=== PATIENT | female | born 1965 | race Caucasian/White ===

== ENCOUNTER 2020-08-16 20:23 | Inpatient (IN) | payer BC, SELFPAY ==
[~2020-08-16 20:23] MED LIST: Iopamidol-370 76% 500 ML 1 ML ONE
[2020-08-16] MEDS ORDERED: Pantoprazole 40 MG VIAL ONE (20:32)
[2020-08-16] MEDS ORDERED: Ondansetron PF 4 MG/2 ML Vial ONE (20:37)
--- NOTE | 2020-08-16 20:43 | RAD ---
Portable frontal chest radiograph: 08/16/2020 COMPARISON: None HISTORY: Abdominal pain FINDINGS: Lungs are clear. Heart and mediastinal contours appear within normal limits. IMPRESSION: No acute findings.
[2020-08-16 21:04] LABS: Hemoglobin 10.7 g/dL (12.0-16.0); Mean Corpuscular Hemoglobin 30.3 pg (27.0-31.0); Mean Corpuscular Volume 89.3 fL (78.0-98.0); RBC Distribution Width 13.5 % (11.5-14.5); Red Blood Cell (RBC) Count 3.53 mill/uL (4.20-5.40); White Blood Cell (WBC) Count 2.1 thou/uL (4.8-10.8)
[2020-08-16 21:08] LABS: INR-International Normal Ratio 1.4; Prothrombin Time 17.2 sec (12.0-14.7)
[2020-08-16 21:09] LABS: PTT 28.9 sec (22.9-36.1)
--- NOTE | 2020-08-16 21:12 | CT ---
CT of the chest, abdomen, and pelvis HISTORY: Pain TECHNIQUE: Axial CT imaging at 5 mm intervals from thoracic inlet through pubic symphysis with IV con trast. Coronal and sagittal reformatted imaging obtained FINDINGS: No lymphadenopathy in the chest. No pleural, pericardial, or mediastinal fluid. Areas of lo bulated linear increased density noted throughout the esophagus suggesting severe extensive esophageal varices. No pneumothorax is seen. No endobronchial lesion is evident. No acute pulmonary p arenchymal abnormality. The osseous structures of the chest demonstrate no acute findings. The abdomen/pelvis demonstrates no free intraperitoneal air or fluid. Hyperdensity within the posteri or aspect of the gallbladder noted, evidence of cholelithiasis. The hepatic parenchyma is markedly heterogeneous in demonstrates a irregular peripheral contour, evid ence of cirrhosis area the spleen is enlarged measuring 23 cm in craniocaudal dimension, evidence of portal hypertension. The stomach is filled with large volume debris. Along the inferior lateral as pect of the stomach there is internal hyperdense material which is suspicious for intraluminal hemorrhage. There are prominent varices along the medial aspect of the gastric fundus and proximal ga stric body. Prominent varices are noted in the gastrohepatic ligament and the splenic hilum. There appears to be nonocclusive clot within the splenic vein on axial image 69 measuring 2 cm. There is an exophytic lobulated lesion emanating from the anterior aspect of the mid pole left kidney measuring 3.1 cm with Hounsfield units of 40-45, possibly on the basis of a solid renal mass. An additional nonspecific low-density lesion emanating from the lower pole of the left kidney measuring 3 cm with Hounsfield units of 25-30. Adrenal glands appear unremarkable as does the right kidney. No evidence for bowel obstruction. The pancreas appears grossly unremarkable. There is multifocal atherosclerotic calcification of the infrarenal abdominal aorta and the arterial structures of the pelvis. No retroperitoneal, mesenteric, or pelvic lymphadenopathy. Osseous structures of the abdomen/pelvis demonstrate no acute osseous abnormality. IMPRESSION: Cirrhosis with portal hypertension. Prominent varices including esophageal and gastric va rices. High density material within the stomach suggest blood. Nonspecific left renal lesion for which follow-up CT with and without contrast advised. Cholelithiasis. 2 cm focus of clot within the splenic vein. Results discussed with Dr. Castro at 9:05 PM 08/16/2020
[2020-08-16 21:17] LABS: #Eosinphils 0.1 thou/uL (0.0-0.7); #Lymphocytes 0.4 thou/uL (1.20-3.40); #Monocytes 0.2 thou/uL (0.11-0.59); #Neutrophils 1.4 thou/uL (1.40-6.50); %Eosinophils 3.2 % (0.0-10.0); %Lymphocytes 19.7 % (21.0-51.0); %Neutrophils 67.1 % (42.0-75.0); Mean Platelet Volume 7.8 fL (7.4-10.4); Platelet Count 74 thou/uL (130-400); Platelet Morphology Comment Appears Decreased
[2020-08-16] MEDS ORDERED: Octreotide Acetate 50 MCG/ML AMP ONE (21:22)
[2020-08-16 21:23] LABS: ALT (SGPT) 42 U/L (8-55); AST (SGOT) 36 U/L (5-34); Albumin 3.1 g/dL (3.5-5.0); Alkaline Phosphatase 82 U/L (40-110); Anion Gap 15 mmol/L (10-20); BUN (Urea Nitrogen) 19 mg/dL (9.8-20.1); Bilirubin, Total 0.4 mg/dL (0.2-1.2); Calc. Creatinine Clearance 0 mL/min (70-130); Carbon Dioxide 22 mmol/L (22-29); Chloride 108 mmol/L (98-107); Estimated GFR-MDRD 45; Glucose 212 mg/dL (70-105); Iron 55 ug/dL (50-170); Iron Binding Capacity, Total 276 mcg/dL (265-497); Protein, Total 6.1 g/dL (6.0-8.3); Sodium 142 mmol/L (136-145)
[2020-08-16 21:32] LABS: Potassium 2.9 mmol/L (3.5-5.1)
--- NOTE | 2020-08-16 22:42 | RAD ---
Portable supine frontal chest radiograph: 08/16/2020 HISTORY: Central line placement, blood loss FINDINGS: Supine imaging provided, limiting assessment for pneumothorax and pleural fluid. There is a right-sided vascular catheter with distal tip overlying the cavoatrial junction region. No focal consolidation or alveolar edema. Right costophrenic angle not fully imaged on this exam. IMPRESSION: Right vascular catheter as above.
--- NOTE | 2020-08-16 23:24 | PDOC.HHP ---
Hospitalist HPI - History of Present Illness hematemesis History of Present Illness: Case of an 54y/o female with pmhx of hypothyroidism, DM and htn who comes to hospital due to hematemesis. patient refers she was on her usual state of health until today when she started with some abdominal discomfort, she states went to the bathroom and passed out, family members was with her and refered it lasted abount 30s before resolution and she was able to recognize him w/o any issues. patient then was taken to her bedroom where she started with multiple episodes of hematemesis associated with dizziness and lightheadedness. patient denies use of heavy alcohol consumption, as far as she knows she is up to date on hep b vaccination, denies any use of iv drugs or any family hx of liver disease. patient also denies any fever chills chest pain or diaphoresis Hospitalist ROS - Review of Systems All other systems reviewed; all pertinent +/- noted in HPI/Subj - Exam General Appearance: NAD, awake alert Eye: PERRL, anicteric sclera ENT: normocephalic atraumatic, no oropharyngeal lesions Neck: supple, symmetric, no JVD, no thyromegaly Heart: RRR, no murmur, no gallops, no rubs Respiratory: CTAB, no wheezes, no rales, no ronchi Gastrointestinal: soft, non-tender, non-distended, normal bowel sounds Extremities: no cyanosis, no clubbing, no edema Skin: normal turgor, no lesions, no rashes Neurological: cranial nerve grossly intact, normal sensation to touch, no weakness Musculoskeletal: normal tone, normal strength, no muscle wasting Psychiatric: normal affect, normal behavior, A&O x 3 Hospitalist Results - Labs Result Diagrams: 08/16/20 20:32 08/16/20 20:32 Lab results: WBC 2.1 thou/uL (4.8-10.8) L 08/16/20 20:32 Hgb 10.7 g/dL (12.0-16.0) L 08/16/20 20:32 Hct 31.5 % (36.0-47.0) L 08/16/20 20:32 MCV 89.3 fL (78.0-98.0) 08/16/20 20:32 Plt Count 74 thou/uL (130-400) L 08/16/20 20:32 Neutrophils % 67.1 % (42.0-75.0) 08/16/20 20:32 Sodium 142 mmol/L (136-145) 08/16/20 20:32 Potassium 2.9 mmol/L (3.5-5.1) L* 08/16/20 20:32 Chloride 108 mmol/L (98-107) H 08/16/20 20:32 Carbon Dioxide 22 mmol/L (22-29) 08/16/20 20:32 BUN 19 mg/dL (9.8-20.1) 08/16/20 20:32 Creatinine 1.24 mg/dL (0.6-1.1) H 08/16/20 20:32 Glucose 212 mg/dL (70-105) H 08/16/20 20:32 Calcium 8.0 mg/dL (7.8-10.44) 08/16/20 20:32 Total Bilirubin 0.4 mg/dL (0.2-1.2) 08/16/20 20:32 AST 36 U/L (5-34) H 08/16/20 20:32 ALT 42 U/L (8-55) 08/16/20 20:32 Alkaline Phosphatase 82 U/L (40-110) 08/16/20 20:32 Serum Total Protein 6.1 g/dL (6.0-8.3) 08/16/20 20:32 Albumin 3.1 g/dL (3.5-5.0) L 08/16/20 20:32 Hospitalist H&P A/P - Problem (1) Upper GI bleeding Code(s): K92.2 - GASTROINTESTINAL HEMORRHAGE, UNSPECIFIED Status: Acute (2) Diabetes Code(s): E11.9 - TYPE 2 DIABETES MELLITUS WITHOUT COMPLICATIONS Status: Acute (3) HTN (hypertension) Code(s): I10 - ESSENTIAL (PRIMARY) HYPERTENSION Status: Acute (4) Hypothyroidism Code(s): E03.9 - HYPOTHYROIDISM, UNSPECIFIED Status: Acute (5) Cirrhosis of liver Code(s): K74.60 - UNSPECIFIED CIRRHOSIS OF LIVER Status: Acute - Plan Plan: 54y/o female with the stated pmhx who present to hospital with hematemesis upper gi bleeding - abd ct consistent with cirrhosis and esophageal and gastric varices. also showed splenic vein clot and L renal mass like lesion - transfused 2 prbcs at ed - GI consulted evaluated patient at ED will do EGD in am - octeotride drip - protonix iv q 12 - npo - check hg q 8hr - prophylactic covered with rocephin - start beta javier for prohylaxis when able to tolerate po dm - ss+ acc htn - holding medication in setting of acute blood loss cirrhosis - new dx for patient - unclear etiology - iron levels normal - will send hepatitis panel - no hx of autoimmune disease, no hx of alcohol abuse - fatty liver? thrombocytopenia - consistent with cirrhosis hypokalemia - replace electrolytes - check mg
[2020-08-17] MEDS: cefTRIAXone\\ROCEPHIN 1 GM in Sodium Chloride 0.9% 100 ML IVPB SCH ×2 (00:25→23:19)
[2020-08-17 00:36] VITALS: BMI 34.8
[2020-08-17] MEDS: Potassium Chloride 40 MEQ in Sodium Chloride 0.9% 250 ML 250 ML IVPB SCH ×2 (00:40→04:57)
[2020-08-17 07:08] LABS: SARS-CoV-2 MS2 Positive; SARS-CoV-2 N Gene Negative; SARS-CoV-2 S Gene Negative; SARS-CoV-2 by NAA Not Detected (NotDetected); SARS-CoV-2 orf1ab Negative
[2020-08-17 07:27] LABS: Hemoglobin 10.7 g/dL (12.0-16.0)
[2020-08-17 07:54] LABS: #Lymphocytes 0.1 thou/uL (1.20-3.40); #Monocytes 0.1 thou/uL (0.11-0.59); #Neutrophils 1.6 thou/uL (1.40-6.50); %Basophils 1.2 % (0.0-1.0); %Eosinophils 0.4 % (0.0-10.0); %Monocytes 5.2 % (0.0-10.0); %Neutrophils 87.2 % (42.0-75.0); Hemoglobin 10.7 g/dL (12.0-16.0); Mean Corpuscular HGB CONC 33.8 g/dL (32.0-36.0); Mean Corpuscular Hemoglobin 30.2 pg (27.0-31.0); Mean Corpuscular Volume 89.4 fL (78.0-98.0); Mean Platelet Volume 7.7 fL (7.4-10.4); Platelet Count 51 thou/uL (130-400); RBC Distribution Width 13.6 % (11.5-14.5); Red Blood Cell (RBC) Count 3.54 mill/uL (4.20-5.40); White Blood Cell (WBC) Count 1.9 thou/uL (4.8-10.8)
[2020-08-17 08:57] LABS: ALT (SGPT) 49 U/L (8-55); AST (SGOT) 38 U/L (5-34); Albumin 3.1 g/dL (3.5-5.0); Alkaline Phosphatase 54 U/L (40-110); Anion Gap 18 mmol/L (10-20); BUN (Urea Nitrogen) 33 mg/dL (9.8-20.1); Bilirubin, Direct 0.2 mg/dL (0.1-0.3); Bilirubin, Total 0.5 mg/dL (0.2-1.2); Calc. Creatinine Clearance 93 mL/min (70-130); Calcium 7.9 mg/dL (7.8-10.44); Carbon Dioxide 18 mmol/L (22-29); Chloride 111 mmol/L (98-107); Estimated GFR-MDRD 51; Globulin 3.1 g/dL (2.4-3.5); Glucose 178 mg/dL (70-105); Magnesium 1.6 mg/dL (1.6-2.6); Potassium 4.7 mmol/L (3.5-5.1); Protein, Total 6.2 g/dL (6.0-8.3); Sodium 142 mmol/L (136-145)
[2020-08-17] MEDS: Pantoprazole 40 MG VIAL IVP SCH ×2 (09:28→20:48)
--- NOTE | 2020-08-17 09:28 | PDOC.HOSPP ---
- Subjective Encounter Date: 08/17/20 Encounter Time: 09:25 Subjective: Mr. Pérez was seen today in follow-up of GI Bleed. She says she feels fine. She denies abdominal pain She denies feeling weak or dizzy. - Objective Vital Signs & Weight: Vital Signs (12 hours) Temp Resp Pulse Ox 08/17/20 08:13 97.4 F L 08/17/20 03:51 97.3 F L 08/17/20 02:00 98.6 F 18 08/17/20 00:18 98.3 F 08/17/20 00:00 98.5 F 95 Weight Weight 229 lb Most Recent Monitor Data Heart Rate from ECG 83 NIBP 111/40 NIBP BP-Mean 63 Respiration from ECG 18 SpO2 95 I&O: 08/16/20 08/17/20 08/18/20 06:59 06:59 06:59 Intake Total 1090 Output Total 700 Balance 390 Result Diagrams: 08/17/20 07:10 08/17/20 07:10 Hospitalist ROS - Medication Medications: Active Medications Generic Name Dose Route Start Last Admin Trade Name Freq PRN Reason Stop Dose Admin Ceftriaxone Sodium 1 gm/ 100 mls @ 200 mls/hr 08/16/20 23:59 08/17/20 00:25 Sodium Chloride IVPB Not Given Q24HR SALEEM - Exam Eye: PERRL, anicteric sclera Heart: RRR, no murmur, no gallops, no rubs, normal peripheral pulses Respiratory: CTAB, no wheezes, no rales, no ronchi, normal chest expansion Gastrointestinal: soft, non-tender, non-distended, distended Extremities: no cyanosis, 1+ LE edema Hosp A/P (1) Upper GI bleeding Code(s): K92.2 - GASTROINTESTINAL HEMORRHAGE, UNSPECIFIED Status: Acute (2) Cirrhosis of liver Code(s): K74.60 - UNSPECIFIED CIRRHOSIS OF LIVER Status: Acute (3) Diabetes Code(s): E11.9 - TYPE 2 DIABETES MELLITUS WITHOUT COMPLICATIONS Status: Chronic (4) HTN (hypertension) Code(s): I10 - ESSENTIAL (PRIMARY) HYPERTENSION Status: Chronic (5) Hypothyroidism Code(s): E03.9 - HYPOTHYROIDISM, UNSPECIFIED Status: Chronic - Plan * Upper GI Bleed- CT scan of the abdomen reviewed. This could be due to esophageal varices. * Continue Octreotide drip, and IV Protonix * Will continue to monitor the H&H * Await GI evaluation * Cirrhosis- agree with prophylatic antibiotics with Rocephin * Will check Hepatitis panel * HTN- blood pressure is stable- will continue to hold hoe medications for now * DM- Hold Metformin adn insulin, and place on SSI
[2020-08-17] MEDS ORDERED: Dextrose 5% in Water 1,000 ML IV PRN (09:32)
[2020-08-17] MEDS ORDERED: Dextrose 50% Abboject 50 ML SYRINGE SLOW IVP PRN (09:32)
[2020-08-17] MEDS ORDERED: HumaLOG 300 UNITS/3 ML VIAL SC PRN ×2 (09:32)
[2020-08-17] MEDS: Propranolol HCl 20 MG TAB PO SCH ×2 (11:26→20:49)
[2020-08-17] MEDS ORDERED: Ondansetron PF 4 MG/2 ML Vial ONE (11:39)
[2020-08-17] MEDS ORDERED: Dexamethasone 20 MG/5 ML VIAL ONE (11:39)
[2020-08-17] MEDS ORDERED: PROPOFOL 200 MG/20 ML VIAL ONE (11:39)
[2020-08-17] MEDS ORDERED: Lidocaine 1% PF 5 ML VIAL ONE (11:39)
[2020-08-17] MEDS ORDERED: Succinylcholine 200 MG/10 ml SYRINGE FS ONE (11:39)
--- NOTE | 2020-08-17 12:42 | CON ---
DATE OF CONSULTATION: 08/16/2020 REASON FOR CONSULTATION: Acute GI bleeding. HISTORY OF PRESENT ILLNESS: Karissa Pérez is a 54-year-old obese female, lives in [place]. She does see Dr. Mcgowan , who is her primary care doctor. The patient had no prior history of liver disease or any ulcer disease. Apparently, she was feeling sick to her stomach with mild discomfort and started vomiting blood. So today was tranfered from [place] to [facility] in [place]. In the ER, she had two episodes of hematemesis and as per ER physician, she vomited almost 2 L of fresh blood. Interestingly, she then became hypotensive and blood pressure was fairly stable. I last saw the patient because of hematemesis. The patient is very stable at the present time. Her pulse is 76, blood pressure 106/70. She is awake, alert, and oriented to time, place, and person. The patient denies history of liver disease from before. Apparently, Dr. Mgcowan told her she has history of abnormal LFTs and plan is being made to refer to a color developer. The patient denies history of liver disease from before. There is no history of any hepatitis in the past. She admits she drinks socially, but insists does not have any alcohol abuse. She usually drinks a couple of beers two or three times a week that is what she states. However, during her college years she did drink for two or three years. No history of drug abuse. There is no prior history of hepatitis B antibodies. The patient had abdominal CAT scan done in the ER and a CAT scan shows findings of liver cirrhosis with splenomegaly and also gastric varices and esophageal varices. The patient has had normal stool today. She had no black tarry stools. Denies any aspirin intake, any NSAID medication intake. She has no relevant history. ALLERGIES: SULFA. SOCIAL HISTORY: The patient denies smoking, but has history of social drinking. MEDICAL ILLNESSES: 1. Obesity. 2. Diabetes mellitus. 3. Hypertension. 4. Hypothyroidism. No history of heart disease. No history of COPD or asthma. No history of migraine. MEDICATION LIST: Reviewed. FAMILY HISTORY: No family history of any cancer, any chronic liver disease. REVIEW OF SYSTEMS: Ten-point system review; CONSTITUTIONAL: No history of any weight loss. No history of any fever or chills. No history of any change in exercise tolerance. HEAD: No chronic headache. No syncope. ENT: No diplopia. No impaired vision. No hearing loss. No nose bleed. No sore throat. BREASTS: No breast lump or masses. CARDIOVASCULAR: No dyspnea, orthopnea, PND. No chest pain. LUNGS: No chronic coughing, hemoptysis, or dyspnea. GI: Nausea, vomiting, hematemesis. : No dysuria, hematuria, or any frequency of urination. NEUROMUSCULAR: No relevant symptoms. HEMATOLOGICAL: No relevant symptoms. NEUROPSYCHIATRY: No relevant symptoms. PHYSICAL EXAMINATION: GENERAL: She is obese, appears comfortable. She is awake, alert, and communicative. She is oriented to time, place, and person. VITAL SIGNS: Actually very stable with pulse of 76, blood pressure of 106/70. HEENT: Conjunctivae are clear. NECK: Supple. No adenitis or any thyromegaly. CARDIOVASCULAR: Normal heart sounds. LUNGS: Clear to auscultation. ABDOMEN: Soft and very flat and pendulous. Abdomen is nontender. There is no organomegaly. No masses. EXTREMITIES: Reveal no edema. LABORATORY DATA: Shows WBC 2100, hemoglobin 10.7, hematocrit 31.5, MCV 89.3, platelet count 74,000, polymorphs 67, lymphocytes 19, monocytes 10. Coagulation profile; PT slightly prolonged at 17.2, INR 1.4. Chemistry panel shows hyperkalemia with potassium of 2.9, sodium 142, BUN is 19, creatinine 1.24, glucose 212, calcium 8, iron is 55, TIBC is 276, ferritin 52.40. AST 36, ALT 42, alkaline phosphatase 82. CLINICAL IMPRESSION: 1. Acute upper gastrointestinal bleeding and she does have varicosities in the stomach and esophagus on CAT scan. The patient had no prior history of liver disease. She insists that she does not drink alcohol too much and drinks only socially. There is no prior history of any hepatitis. 2. Anemia due to blood loss. 3. 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 4. Obesity. 5. Hypertension. 6. Hypothyroidism. 7. Diabetes mellitus. PLAN: 1. Start the patient on IV octreotide 50 mcg per hour after GI dose of bolus of 100 mcg to start with. 2. Serial H and H. 3. Transfuse p.r.n. 4. Admit to IMCU or CCU. 5. We will plan for EGD tomorrow morning. Job ID: [id number] [facility]
--- NOTE | 2020-08-17 12:53 | PRG ---
DATE OF SERVICE: 08/17/2020 SUBJECTIVE: This is a 54-year-old female with no prior history of liver disease, hospitalized with hematemesis. CAT scan shows findings of liver cirrhosis. She is on IV octreotide. She has done well overnight without any nausea, vomiting. She is not having bowel movements. Her blood count is actually stable, not dropping anymore. On admission, she had a hemoglobin of 10.7, remains same thing, and this morning 10.7. She offers no complaints. OBJECTIVE: VITAL SIGNS: Pulse is 78, blood pressure is 111/60. CARDIOVASCULAR: Normal heart sounds. LUNGS: Clear to auscultation. ABDOMEN: Soft. Abdomen is nontender. No organomegaly. IMAGING STUDIES: CAT scan did show findings of liver cirrhosis with gastric varices and also esophageal varices. There is also mention of thrombus in the splenic vein. PLAN: 1. Follow up labs. 2. EGD later on today, possible variceal banding. Based on the CAT scan findings, I believe she may need a TIPS. This can be done in the outpatient setting. Unfortunately, she need [facility]eral [facility]. Job ID: [id number] [facility]
--- NOTE | 2020-08-17 13:45 | CON ---
DATE OF CONSULTATION: HISTORY OF PRESENT ILLNESS: Karissa Pérez is a 54-year-old patient from [place], [place]. Smoking history, 10 years ago quit. Presented to the hospital with large amount of coffee-ground vomitus. She says 2 L. She sees a doctor in [place]. She was hypotension on arrival, blood pressure systolic was 60. She has been hydrated and now on the B side, reason for consult. She is better. Denies any shortness of breath, coughing, or wheezing. No further blood in the vomitus. No diarrhea. No bloody stool. She has never done this before. PAST MEDICAL HISTORY: Diabetes, hypertension, hypothyroidism. PREVIOUS SURGERIES: None recently. Alcohol, very minimal. Tobacco as noted, quit smoking years ago. HOME MEDICINES: 1. Metformin 1000 once a day. 2. Synthroid . 3. Losartan 25. 4. Meloxicam 15 as needed. 5. Insulin. ALLERGIES: SULFA. REVIEW OF SYSTEMS: Ten-point negative. 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 PHYSICAL EXAMINATION: VITAL SIGNS: Temperature 97, pulse 86, blood pressure 110/60, saturations 94% on room air, respiratory rate 18. CHEST: No wheezing, no crackles. CARDIAC: Normal S1, S2. No gallops. ABDOMEN: No masses. LABORATORY DATA: Creatinine 3.12, BUN is 33. White count 1.9, H and H 10 and 31. Platelet count 51,000. CT abdomen shows ascites, cirrhosis. IMPRESSION: 1. Upper gastrointestinal bleed secondary to variceal bleed. 2. Cirrhosis of unknown etiology. 3. Mild azotemia. 4. Hypertension. 5. Hypothyroidism. PLAN: Pulmonary mcgee, she is stable. Her coronavirus test is negative. Endoscopy to be performed. In the meantime, she is on Protonix. Supportive care. Pulmonary will follow while in the MICU. Further input as per GI. Consultation note, 70 minutes, 50% direct patient care. Job ID: [id number]
[2020-08-17 14:01] LABS: Hemoglobin 10.4 g/dL (12.0-16.0)
[2020-08-17] MEDS ORDERED: Promethazine HCl 25 MG/ML VIAL IM PRN (18:59)
[2020-08-17] MEDS ORDERED: Promethazine HCl 25 MG/ML VIAL SLOW IVP PRN (18:59)
[2020-08-17] MEDS ORDERED: Ondansetron HCl/PF 4 MG/2 ML Vial IVP PRN (18:59)
[2020-08-17] MEDS ORDERED: Promethazine HCl 25 MG/ML VIAL ONE (19:11)
[2020-08-17] MEDS: Octreotide Acetate 1,250 MCG in Sodium Chloride 0.9% 250 ML 250 ML IVPB SCH (21:15)
[2020-08-18 04:47] LABS: Anion Gap 13 mmol/L (10-20); BUN (Urea Nitrogen) 34 mg/dL (9.8-20.1); Calc. Creatinine Clearance 116 mL/min (70-130); Calcium 7.6 mg/dL (7.8-10.44); Carbon Dioxide 23 mmol/L (22-29); Chloride 110 mmol/L (98-107); Estimated GFR-MDRD 65; Glucose 181 mg/dL (70-105); Sodium 142 mmol/L (136-145)
[2020-08-18 05:09] LABS: HBCM Index 0.12 S/CO (0-0.79); HBSAg Index 0.19 S/CO (0-0.99); Hep A IgM AB Non-Reactive (NonReactive); Hep A IgM S/CO 0.21 S/CO (0-0.79); Hep B Surf Ag Non-Reactive S/CO (NonReactive); Hep C IgG Ab Non-Reactive (NonReactive); Hep C Index 0.07 S/CO (0-0.79); Hepatitis B Core IgM Abs Non-Reactive (NonReactive)
[2020-08-18 05:15] LABS: Band 6 % (5-11); Hemoglobin 9.7 g/dL (12.0-16.0); Lymphocytes 9 % (21-51); MDiff Complete? YES; Mean Corpuscular HGB CONC 33.3 g/dL (32.0-36.0); Mean Corpuscular Hemoglobin 30.2 pg (27.0-31.0); Mean Corpuscular Volume 90.8 fL (78.0-98.0); Mean Platelet Volume 7.7 fL (7.4-10.4); Neutrophil 85 % (42-75); Platelet Count 48 thou/uL (130-400); Platelet Morphology Comment Appears Decreased; RBC Distribution Width 13.8 % (11.5-14.5); Red Blood Cell (RBC) Count 3.21 mill/uL (4.20-5.40); White Blood Cell (WBC) Count 1.4 thou/uL (4.8-10.8)
--- NOTE | 2020-08-18 07:12 | OP ---
DATE OF PROCEDURE: 08/17/2020 PROCEDURES PERFORMED: 1. Esophagogastroduodenoscopy. 2. Esophageal banding x5. PREOPERATIVE DIAGNOSES: Upper gastrointestinal bleeding and CAT scan showing liver cirrhosis, portal hypertension, gastric varices, and also esophageal varices. There is also mention of thrombus in the splenic vein. POSTOPERATIVE DIAGNOSES: 1. Three columns of 4+ varicosities all the way up toward upper esophagus. 2. Large amount of blood clots and dark blood, hence the stomach and fundus could not be visualized. No fresh blood or any active bleeding in the stomach. Normal duodenum. DESCRIPTION OF PROCEDURE: The patient was intubated and was given sedation by Anesthesia Department. The patient was put on the left lateral position. A bite block was placed. A Pentax video gastroscope under direct vision was passed down the oropharynx past the GE junction into the stomach. The esophagus showed three columns of 4+ varicosities. The varicosities extended all the way to close upper esophagus. There was no active bleeding seen. Upon entering the stomach, the patient was found to have a large amount of blood clots. Although I tried to visualize the fundus and cardia, I could not visualize because of blood clots. There was no fresh bleed seen. The gastric body and gastric antrum had no other lesion. The duodenum, no pathology. The scope removed. The variceal band ligator was attached to the end of the scope and advanced in to the stomach. The scope was carefully withdrawn, and five variceal banding applied with good hemostasis. The scope removed. RECOMMENDATION: 1. Clear liquid diet. 2. Continue octreotide for the next 48 hours. 3. Serial H and H. 4. Transfuse p.r.n. I believe she will probably need TIPS procedure because of gastric varices and also what appears to be having some thrombus in the splenic vein. Job ID: [id number] [facility]
--- NOTE | 2020-08-18 08:56 | PDOC.HOSPP ---
- Subjective Encounter Date: 08/18/20 Encounter Time: 08:54 Subjective: Ms. Pérez was seen today in follow-up of esophageal varices, and cirrhosis. She has not had any vomiting today. she denies abdominal pain. No new complaints. No melena. - Objective Vital Signs & Weight: Vital Signs (12 hours) Temp Pulse Ox 08/18/20 07:33 98.0 F 08/18/20 07:21 98 08/18/20 04:01 97.1 F L 08/17/20 23:33 97.5 F L Weight Weight 229 lb Most Recent Monitor Data Heart Rate from ECG 72 NIBP 111/46 NIBP BP-Mean 67 Respiration from ECG 21 SpO2 96 I&O: 08/17/20 08/18/20 08/19/20 06:59 06:59 06:59 Intake Total 1090 880 Output Total 700 1300 Balance 390 -420 Result Diagrams: 08/18/20 03:45 08/18/20 03:45 Additional Labs: Accuchecks 08/18/20 08/17/20 08/17/20 06:18 20:10 12:49 POC Glucose 145 H 140 H 108 H Hospitalist ROS - Medication Medications: Active Medications Generic Name Dose Route Start Last Admin Trade Name Freq PRN Reason Stop Dose Admin Octreotide Acetate 1,250 mcg/ 251.25 mls @ 0 mls/hr 08/16/20 21:45 08/17/20 21:15 Sodium Chloride IVPB 251.25 mls INF SALEEM Administration Ceftriaxone Sodium 1 gm/ 100 mls @ 200 mls/hr 08/16/20 23:59 08/17/20 23:19 Sodium Chloride IVPB 100 mls Q24HR SALEEM Administration Pantoprazole Sodium 40 mg 08/17/20 09:00 08/17/20 20:48 Pantoprazole 40 Mg Vial IVP 40 mg BID SALEEM Administration Propranolol HCl 20 mg 08/17/20 09:00 08/17/20 20:49 Propranolol Hcl 20 Mg Tab PO 20 mg BID SALEEM Administration Sodium Chloride 10 ml 08/16/20 23:20 08/17/20 09:28 Flush - Normal Saline 10 Ml Syringe IVF 10 ml PRN PRN Administration Saline Flush - Exam Eye: PERRL, anicteric sclera Heart: RRR, murmur present, II/IV Respiratory: CTAB, no wheezes, no rales, no ronchi, normal chest expansion, no tachypnea, normal percussion Gastrointestinal: soft, non-tender, non-distended, normal bowel sounds, no palpable masses Extremities: no cyanosis, 1+ LE edema Skin - other findings: + spider angiomata Hosp A/P (1) Upper GI bleeding Code(s): K92.2 - GASTROINTESTINAL HEMORRHAGE, UNSPECIFIED Status: Acute (2) Cirrhosis of liver Code(s): K74.60 - UNSPECIFIED CIRRHOSIS OF LIVER Status: Acute (3) Diabetes Code(s): E11.9 - TYPE 2 DIABETES MELLITUS WITHOUT COMPLICATIONS Status: Chronic (4) HTN (hypertension) Code(s): I10 - ESSENTIAL (PRIMARY) HYPERTENSION Status: Chronic (5) Hypothyroidism Code(s): E03.9 - HYPOTHYROIDISM, UNSPECIFIED Status: Chronic - Plan * Upper GI Bleed- EGD findings noted. She had grade 4 esophageal varices. These have been banded * TIPS procedure is recommended * Continue Octreotide drip, and IV Protonix * Continue to monitor her H&H * Cirrhosis- Continue Rocephin IV * Hepatitis panel is negative, further work-up per GI- which can be done outpatient * HTN- blood pressure is stable- will continue to hold hoe medications for now * DM- Continue to hold Metformin and Trujeo, continue SSI, once she is on a solid diet, may reintroduce these. * Home when ok by GI
[2020-08-18] MEDS: Propranolol HCl 20 MG TAB PO SCH ×2 (09:15→20:21)
[2020-08-18] MEDS: Pantoprazole 40 MG VIAL IVP SCH ×2 (09:16→20:21)
[2020-08-18] MEDS ORDERED: Levothyroxine Sodium 125 MCG TAB PO SCH (09:30)
--- NOTE | 2020-08-18 10:32 | PRG ---
DATE OF SERVICE: 08/18/2020 SUBJECTIVE: Karissa Pérez is status post upper GI endoscopy for variceal bleeds banding. She is doing well pulmonary mcgee. OBJECTIVE: VITAL SIGNS: pulse 67, blood pressure 110/47, and afebrile. CHEST: No wheezing. No crackles. CARDIAC: Normal S1, S2. No gallops. ABDOMEN: No masses. LABORATORY DATA: Unremarkable. White count 1.4, H and H are 9 and 29, platelet count 48. ASSESSMENT: 1. Cirrhosis, etiology unclear. 2. Thrombocytopenia. 3. Pancytopenia. PLAN: Disposition as per GI. Pulmonary is going to follow at a distance. Job ID: [id number]
[2020-08-18] MEDS: Mag-Al 1200 mg/1200 mg/30 ML UDCUP PO PRN (17:45)
[2020-08-18] MEDS ORDERED: Pantoprazole 40 MG VIAL IVP SCH (17:45)
[2020-08-18] MEDS: Octreotide Acetate 1,250 MCG in Sodium Chloride 0.9% 250 ML 250 ML IVPB SCH (20:21)
[2020-08-19] MEDS: cefTRIAXone\\ROCEPHIN 1 GM in Sodium Chloride 0.9% 100 ML IVPB SCH ×2 (00:04→23:53)
[2020-08-19 05:21] LABS: #Lymphocytes 0.3 thou/uL (1.20-3.40); #Monocytes 0.2 thou/uL (0.11-0.59); %Basophils 0.2 % (0.0-1.0); %Eosinophils 1.9 % (0.0-10.0); %Lymphocytes 18.9 % (21.0-51.0); Hemoglobin 9.3 g/dL (12.0-16.0); Mean Corpuscular HGB CONC 33.1 g/dL (32.0-36.0); Mean Corpuscular Volume 90.8 fL (78.0-98.0); Mean Platelet Volume 7.3 fL (7.4-10.4); Platelet Count 48 thou/uL (130-400); RBC Distribution Width 13.9 % (11.5-14.5); Red Blood Cell (RBC) Count 3.11 mill/uL (4.20-5.40); White Blood Cell (WBC) Count 1.5 thou/uL (4.8-10.8)
[2020-08-19] MEDS: Levothyroxine Sodium 125 MCG TAB PO SCH (05:55)
[2020-08-19] MEDS: Mag-Al 1200 mg/1200 mg/30 ML UDCUP PO PRN (05:57)
--- NOTE | 2020-08-19 06:41 | PRG ---
DATE OF SERVICE: 08/18/2020 SUBJECTIVE: This is a 54-year-old female, hospitalized over the weekend with hematemesis and anemia. The patient had no prior history of liver disease. No history of any hepatitis in the past. No history of any alcohol abuse. The CAT scan on admission showed findings of liver cirrhosis, gastric varices, and also esophageal varices. She also had some clot in the splenic vein. She underwent EGD yesterday and was found to have extensive varicosities in the esophagus. She underwent banding. The stomach could not be completely visualized because of large amount of old blood and blood clots. The patient is on clear liquid diet since last night. She is doing well. She complains of mild epigastric burning pain. There is no nausea or vomiting. She wants to eat actually. PHYSICAL EXAMINATION: GENERAL: She is obese, appears comfortable, in no distress. VITAL SIGNS: Actually very stable. Pulse is around 70, blood pressure is 146/57. CARDIOVASCULAR SYSTEM: Normal heart sounds. LUNGS: Clear to auscultation. ABDOMEN: Soft. Abdomen is actually nontender, although she complains of epigastric burning pain. Overall exam is very benign. LABORATORY DATA: Show hemoglobin today of 9.7, WBC 1400, platelet count 48,000, polymorphs 85, . Chemistry panel shows _mildly elevated BUN,, creatinine 0.9. CLINICAL IMPRESSION: 1. Upper GI bleeding. 2. Findings of liver cirrhosis, diagnosed with portal hypertension. 3. Esophageal varices and gastric varices with status post banding of the esophageal varices yesterday. 4. Obesity. 5. Diabetes mellitus. RECOMMENDATIONS: 1. Advance diet to 1800-calorie ADA diet. 2. Continue with the octreotide for the next 24 hours. 3. Hopefully, octreotide can be tapered off starting from tomorrow night. If she does well, hopefully she can go home on Tuesday. She will followup with her regular doctor and also will see a Gastroentrologist .. Job ID: [id number] [facility]
--- NOTE | 2020-08-19 07:44 | PDOC.HOSPP ---
- Subjective Encounter Date: 08/19/20 Encounter Time: 08:36 Subjective: Mrs. Pérez seen for follow-up of GI bleed today. She reports chest and upper abdominal pain that began yesterday and is exacerbated by eating/drinking. she believes that it is in the same distribution of where she had her esophageal varices banded. She describes it as discomfort and really bad indigestion and also has had a sensation of needing to vomit but has not vomited. She denies radiation of the pain, diaphoresis, SOB, or hiccups. - Objective Vital Signs & Weight: Vital Signs (12 hours) Temp Resp Pulse Ox 08/19/20 07:23 98.9 F 08/19/20 04:00 98.4 F 08/19/20 02:01 16 08/19/20 00:00 97.8 F 08/18/20 20:00 97 08/18/20 19:51 18 Weight Weight 229 lb Most Recent Monitor Data Heart Rate from ECG 59 NIBP 118/55 NIBP BP-Mean 76 Respiration from ECG 22 SpO2 97 I&O: 08/18/20 08/19/20 08/20/20 06:59 06:59 06:59 Intake Total 880 2940 Output Total 1300 1875 Balance -420 1065 Result Diagrams: 08/19/20 04:50 08/18/20 03:45 Additional Labs: Accuchecks 08/19/20 08/18/20 08/18/20 05:54 19:55 18:41 POC Glucose 127 H 158 H 155 H 08/18/20 12:36 POC Glucose 117 H Hospitalist ROS - Medication Medications: Active Medications Generic Name Dose Route Start Last Admin Trade Name Freq PRN Reason Stop Dose Admin Al Hydroxide/Mg Hydroxide 30 ml 08/18/20 17:35 08/19/20 05:57 Mag-Al 1200 Mg/1200 Mg/30 Ml Udcup PO 30 ml Q6H PRN Administration Heartburn or Indigestion Octreotide Acetate 1,250 mcg/ 251.25 mls @ 0 mls/hr 08/16/20 21:45 08/18/20 20:21 Sodium Chloride IVPB 251.25 mls INF SALEEM Administration Ceftriaxone Sodium 1 gm/ 100 mls @ 200 mls/hr 08/16/20 23:59 08/19/20 00:04 Sodium Chloride IVPB 100 mls Q24HR SALEEM Administration Levothyroxine Sodium 125 mcg 08/19/20 06:00 08/19/20 05:55 Levothyroxine Sodium 125 Mcg Tab PO 125 mcg 0600 SALEEM Administration Pantoprazole Sodium 40 mg 08/17/20 09:00 08/18/20 20:21 Pantoprazole 40 Mg Vial IVP 40 mg BID SALEEM Administration Propranolol HCl 20 mg 08/17/20 09:00 08/18/20 20:21 Propranolol Hcl 20 Mg Tab PO 20 mg BID SALEEM Administration Sodium Chloride 10 ml 08/16/20 23:20 08/17/20 09:28 Flush - Normal Saline 10 Ml Syringe IVF 10 ml PRN PRN Administration Saline Flush - Exam Eye: PERRL, anicteric sclera Heart: RRR, no gallops, no rubs, normal peripheral pulses, murmur present, II/IV Respiratory: CTAB, no wheezes, no rales, no ronchi, normal chest expansion Gastrointestinal: soft (+ mild epigastric tenderness), non-distended, normal bowel sounds, no palpable masses, no hepatomegaly, no splenomegaly Extremities: no cyanosis, no clubbing, no edema Psychiatric: normal affect, normal behavior, A&O x 3 Hosp A/P (1) Upper GI bleeding Code(s): K92.2 - GASTROINTESTINAL HEMORRHAGE, UNSPECIFIED Status: Acute (2) Cirrhosis of liver Code(s): K74.60 - UNSPECIFIED CIRRHOSIS OF LIVER Status: Acute (3) Diabetes Code(s): E11.9 - TYPE 2 DIABETES MELLITUS WITHOUT COMPLICATIONS Status: Chronic (4) HTN (hypertension) Code(s): I10 - ESSENTIAL (PRIMARY) HYPERTENSION Status: Chronic (5) Hypothyroidism Code(s): E03.9 - HYPOTHYROIDISM, UNSPECIFIED Status: Chronic - Plan * Upper GI Bleed- EGD findings noted. She had grade 4 esophageal varices. These have been banded * TIPS procedure is recommended * Continue Octreotide drip, and IV Protonix * Continue to monitor her H&H * Cirrhosis- Continue Rocephin IV * Hepatitis panel is negative, further work-up per GI- which can be done out patient * HTN- blood pressure is stable- will continue to hold hoe medications for now * DM- Continue to hold Metformin and Trujeo, continue SSI, once she is on a solid diet, may reintroduce these. * Home when ok by GI * * Patient seen and examined and discussed with Julisa Parada MS-3, and agree with above. Ms. Pérez notes some chest discomfort, as well as upper abdominal pain. She says it is mild. Her exam is unchanged, other than mild epigastric tenderness, but no flank dullnes. No lower extremity edema, and no juandice. Will continue the Octreotide drip, as well as Protonix. May need to adjust blood pressure medications, as she has been placed on Propranolol. Hopefully home tomorrow.
[2020-08-19] MEDS: Pantoprazole 40 MG VIAL IVP SCH ×2 (08:23→20:30)
[2020-08-19] MEDS: Propranolol HCl 20 MG TAB PO SCH ×2 (09:03→20:30)
--- NOTE | 2020-08-19 17:00 | PRG ---
DATE OF SERVICE: 08/19/2020 SUBJECTIVE: This is a 54-year-old female, diabetic, obesity, and hypothyroidism. She came to the hospital over the weekend with hematemesis. She underwent EGD and was found to have 4+ of varices. The CAT scan did show also gastric varices, but; however, the exam could not really look at the fundus of the stomach because of retained blood clots. The patient is on IV octreotide. She is doing well except complaints of some indigestion and burning pain in epigastric area. She is on antacid. She is tolerating diet. No nausea, no vomiting. She has had no stool, although she has been on Mylanta four times a day since yesterday. She appears very comfortable, in no acute distress. OBJECTIVE: VITAL SIGNS: Afebrile, pulse is 63, and blood pressure 120/59. CARDIOVASCULAR SYSTEM: Normal heart sounds. LUNGS: Clear to auscultation. ABDOMEN: Soft. Abdomen is nontender. No organomegaly. No masses. LABORATORY DATA: From today shows hemoglobin around 9.3, hematocrit 28.2, MCV is 90.8, WBC 1500, and platelet count 48,000. Chemistry panel normal lytes and chloride is 110, BUN is 34, creatinine 0.90, and glucose 127. CLINICAL IMPRESSION: 1. Newly diagnosed liver cirrhosis, etiology unclear. Apparently, she has had some hepatitis markers drawn in Dr. Mcgowan's office recently because of abnormal LFTs. They told me negative. 2. Obesity. 3. Diabetes mellitus. 4. Hypothyroidism. 5. Cytopenia, most likely from liver disease. RECOMMENDATION: We will plan to taper of the octreotide tonight and hopefully be off it tomorrow morning. If she does well, hopefully she is instructed to go home tomorrow sometime. She is advised to go back and see Dr. Mcgowan. Apparently, Dr. Mcgowan made a referral to a window shade ring sewer and she does not know the name of the person. She will follow up with Dr. Mcgowan and follow with the recommended window shade ring sewer from Dr. cMgowan office. Job ID: [id number]
[2020-08-19] MEDS: Octreotide Acetate 1,250 MCG in Sodium Chloride 0.9% 250 ML 250 ML IVPB SCH (20:30)
[2020-08-20] MEDS: Levothyroxine Sodium 125 MCG TAB PO SCH (06:47)
--- NOTE | 2020-08-20 07:28 | PDOC.HOSPP ---
- Subjective Encounter Date: 08/20/20 Encounter Time: 08:15 Subjective: Mrs. Ramos seen today for follow-up of GI bleed today. She reports her chest/upper abdomen pain from yesterday is much improved -- more sporadic and less intense. She still has pain with eating/drinking but is able to eat fine. She has had a headache all night yesterday that has continued into this morning. It is present at the bilateral temples and feels like pressure and she rates it a 4/10. She still has some pain with deep inspiration in her lower ribs, but none at rest. She denies any nausea/vomiting or vision changes. - Objective Vital Signs & Weight: Vital Signs (12 hours) Temp Pulse Ox 08/20/20 03:55 98.2 F 08/19/20 20:00 93 L Weight Weight 229 lb Most Recent Monitor Data Heart Rate from ECG 59 NIBP 106/48 NIBP BP-Mean 67 Respiration from ECG 22 SpO2 96 I&O: 08/19/20 08/20/20 08/21/20 06:59 06:59 06:59 Intake Total 2940 Output Total 1875 Balance 1065 Result Diagrams: 08/19/20 04:50 08/18/20 03:45 Additional Labs: Accuchecks 08/20/20 08/19/20 08/19/20 06:08 20:13 16:47 POC Glucose 127 H 148 H 157 H Hospitalist ROS - Medication Medications: Active Medications Generic Name Dose Route Start Last Admin Trade Name Freq PRN Reason Stop Dose Admin Al Hydroxide/Mg Hydroxide 30 ml 08/18/20 17:35 08/19/20 05:57 Mag-Al 1200 Mg/1200 Mg/30 Ml Udcup PO 30 ml Q6H PRN Administration Heartburn or Indigestion Octreotide Acetate 1,250 mcg/ 251.25 mls @ 0 mls/hr 08/16/20 21:45 08/19/20 20:30 Sodium Chloride IVPB 251.25 mls INF SALEEM Administration Ceftriaxone Sodium 1 gm/ 100 mls @ 200 mls/hr 08/16/20 23:59 08/19/20 23:53 Sodium Chloride IVPB 100 mls Q24HR SALEEM Administration Levothyroxine Sodium 125 mcg 08/19/20 06:00 08/20/20 06:47 Levothyroxine Sodium 125 Mcg Tab PO 125 mcg 0600 SALEEM Administration Pantoprazole Sodium 40 mg 08/17/20 09:00 08/19/20 20:30 Pantoprazole 40 Mg Vial IVP 40 mg BID SALEEM Administration Propranolol HCl 20 mg 08/17/20 09:00 08/19/20 20:30 Propranolol Hcl 20 Mg Tab PO 20 mg BID SALEEM Administration Sodium Chloride 10 ml 08/16/20 23:20 08/17/20 09:28 Flush - Normal Saline 10 Ml Syringe IVF 10 ml PRN PRN Administration Saline Flush - Exam General Appearance: NAD, awake alert Eye: PERRL, anicteric sclera ENT: normocephalic atraumatic Neck: supple Heart: RRR, normal peripheral pulses, murmur present (innocent murmur heard best over the left sternal border) Respiratory: CTAB, no wheezes, no rales, no ronchi, no tachypnea Gastrointestinal: soft, non-tender, non-distended, normal bowel sounds, no hepatomegaly Extremities: no cyanosis, no edema Skin: normal turgor Musculoskeletal: normal strength Psychiatric: A&O x 3 Hosp A/P (1) Upper GI bleeding Code(s): K92.2 - GASTROINTESTINAL HEMORRHAGE, UNSPECIFIED Status: Acute (2) Cirrhosis of liver Code(s): K74.60 - UNSPECIFIED CIRRHOSIS OF LIVER Status: Acute (3) Diabetes Code(s): E11.9 - TYPE 2 DIABETES MELLITUS WITHOUT COMPLICATIONS Status: Chronic (4) HTN (hypertension) Code(s): I10 - ESSENTIAL (PRIMARY) HYPERTENSION Status: Chronic (5) Hypothyroidism Code(s): E03.9 - HYPOTHYROIDISM, UNSPECIFIED Status: Chronic - Plan * Upper GI Bleed- EGD findings noted. She had grade 4 esophageal varices. These have been banded * TIPS procedure is recommended * Continue Octreotide drip, and IV Protonix * Continue to monitor her H&H * Cirrhosis- Continue Rocephin IV * Hepatitis panel is negative, further work-up per GI- which can be done outpatient * HTN- blood pressure is stable- will continue to hold hoe medications for now * DM- Continue to hold Metformin and Trujeo, continue SSI, once she is on a solid diet, may reintroduce these. * Home when ok by GI * * Patient seen and examined and discussed with Julisa Parada MS-3, and agree w ith above. Ms. Pérez is feeling a bit better. The chest discomfort has improved. Her exam is unchanged. Hopefully the Octreotide drip can be discontinued, and she can be dicahrged home. She is to hold Losartan, and continue Propranolol, unless her SBP goes above 140. At this point she can re-start Losartan. Follow-up with [facility] as already scheduled.
[2020-08-20] MEDS: Pantoprazole 40 MG VIAL IVP SCH (08:56)
[2020-08-20] MEDS: Propranolol HCl 20 MG TAB PO SCH (08:56)
[2020-08-20] MEDS ORDERED: Losartan 25 MG TAB PO SCH (09:00)
[2020-08-20] MEDS ORDERED: metFORMIN 500 MG TAB PO SCH (09:00)
[2020-08-20 11:44] LABS: Mean Corpuscular Volume 90.7 fL (78.0-98.0); Mean Platelet Volume 7.8 fL (7.4-10.4); Platelet Count 52 thou/uL (130-400); RBC Distribution Width 13.5 % (11.5-14.5); Red Blood Cell (RBC) Count 2.99 mill/uL (4.20-5.40); White Blood Cell (WBC) Count 1.1 thou/uL (4.8-10.8)
[2020-08-20 12:16] LABS: Band 4 % (5-11); Eosinophils 3 % (0-10); Lymphocytes 20 % (21-51); MDiff Complete? YES; Monocytes 9 % (0-10); Neutrophil 63 % (42-75); Platelet Morphology Comment Appears Decreased; Polychromasia SLIGHT = 2-3 cells (100X) (0-2/hpf)
[2020-08-20 12:26] LABS: Anion Gap 12 mmol/L (10-20); BUN (Urea Nitrogen) 16 mg/dL (9.8-20.1); Calc. Creatinine Clearance 130 mL/min (70-130); Calcium 7.7 mg/dL (7.8-10.44); Carbon Dioxide 23 mmol/L (22-29); Chloride 109 mmol/L (98-107); Estimated GFR-MDRD 74; Glucose 185 mg/dL (70-105); Potassium 3.7 mmol/L (3.5-5.1); Sodium 140 mmol/L (136-145)
--- NOTE | 2020-08-20 14:31 | PRG ---
DATE OF SERVICE: 08/20/2020 HISTORY: This is a 54-year-old pleasant female, hospitalized over the weekend with hematemesis, anemia due to blood loss. An abdominal CAT scan done showed evidence of portal hypertension, gastric varices, and also esophagitis. She underwent EGD 3 days ago and was found to have extensive varicosities. Unfortunately, the fundus could not be visualized because of large amount of blood clots. She underwent esophageal banding. She is on IV octreotide since this past Tuesday and was tapered this morning from 50 mcg to 25 mcg. She has done well overnight. No nausea, vomiting, or abdominal pain. Getting some indigestion and heartburn off and on. The blood count has slightly dropped to hemoglobin 9.0, hematocrit 27.1, platelet count 52,000. She has no complaints. PHYSICAL EXAMINATION: VITAL SIGNS: Patient is obese. She is afebrile. Her pulse is 72, blood pressure 124/47. CARDIOVASCULAR SYSTEM: Normal heart sounds. LUNGS: Clear to auscultation. ABDOMEN: Soft and nontender. No organomegaly. No masses. CLINICAL IMPRESSION: 1. Liver cirrhosis, newly diagnosed, etiology unclear. She had hepatitis markers negative. 2. Obesity, possible steatohepatitis which could account for liver cirrhosis. 3. Diabetes mellitus. RECOMMENDATIONS: 1. Discontinue octreotide. 2. May discharge home. She is advised to go and see her primary care doctor. Apparently, she is supposed to see a automobile engine assembler at [facility]. The patient advised to have repeat EGD done and if the EGD does show gastric varices, then think about TIPS versus observation. Job ID: [id number] [facility]
[2020-08-20 15:08] VITALS: TEMP 97.7
--- NOTE | 2020-08-21 03:08 | DIS ---
DATE OF ADMISSION: 08/16/2020 DATE OF DISCHARGE: 08/20/2020 DISCHARGE DISPOSITION: Home. DISCHARGE DIAGNOSES: 1. Esophageal varices. 2. Cirrhosis of the liver. 3. Obesity. 4. Diabetes mellitus, type 2. 5. Hypothyroidism. 6. Hypertension. DISCHARGE MEDICATIONS: Include: 1. Protonix 40 mg p.o. daily. 2. Inderal 20 mg p.o. b.i.d. 3. Lantus insulin 18 units subcu at bedtime. 4. Synthroid 125 mcg p.o. daily. 5. Metformin 1000 mg p.o. daily. 6. Losartan 25 mg p.o. daily. IMAGING DONE DURING THE HOSPITAL STAY: The patient had a CT scan of the abdomen and pelvis, in which it demonstrated evidence of cirrhosis with portal hypertension, prominent varices, cholelithiasis, and a 2 cm clot in the spleen. The patient underwent upper endoscopy and this demonstrated 3 columns of 4+ varices all the way up to the upper esophagus. There was a large amount of blood clots and dark stool within the stomach. Therefore, the fundus could not be visualized. There was normal-appearing duodenum. CODE STATUS: Full code. ALLERGIES: TO SULFA. HOSPITAL COURSE: Ms. Pérez is a pleasant 54-year-old female, who presented to the emergency room after she was coughing up or vomiting blood. She stated it was a very large volume. She was brought to the emergency room, where initially she underwent CT scan of the abdomen. This showed findings consistent with liver cirrhosis as well as portal hypertension and prominent varices. She was admitted to the hospital and placed in the IMCU on an octreotide drip as well as IV Protonix. GI was consulted and she underwent urgent upper endoscopy. There, she was found to have large 4+ varices in the esophagus as well as the gastric area. These were banded. She tolerated the procedure well and was monitored in the IMCU on the octreotide drip for a couple of more days. It is unclear the etiology of the cirrhosis. She does have a history of fatty liver in the past. Her primary care physician was in the process of getting her a referral to see a mailing jogger in the outpatient setting, and she has been instructed to keep that appointment, which will be early next week. At that time, the mailing jogger can run the additional test to determine the etiology of the cirrhosis. She was placed on propranolol as well as Protonix. Losartan was held due to low blood pressure. Once the Protonix was started, she was instructed to monitor her blood pressure daily, and if her blood pressure begins to rise above 140 systolic, then she is to restart the losartan. Job ID: [id number]
--- NOTE | 2020-08-22 04:35 | PQF ---
Dear : Bg El Date 08/22/20 Please exercise your independent, professional judgment in responding to the clarification form. Clinical indicators are provided on the bottom of this form for your review Can you please further clarify the etiology of esophageal varices? Please check appropriate box(es): [ X ] Liver cirrhosis [X ] Portal hypertension [ ] Other diagnosis please specify [ ] Unable to determine Physician Signature: Date/Time: For continuity of documentation, please document condition throughout progress notes and discharge summary. Thank You. To be completed by CDI/Coding staff for physician review: Present Clinical Indicators - Signs / Symptoms / Labs Results and Location in Medical Record [ x ] Hematemesis H and P pg.1 [ x ] Upper GI Bleed H and P pg.2 [ x ] Abd CT consistent with cirrhosis and esophageal varices, also showed splenic vein clot H and P pg.3 [ x ] Thrombocytopenia, consistent with cirrhosis H and P pg.3 [ x ] Upper GI bleed secondary to variceal bleed Consult pg.2 Dr. Gaytan [ x ] CAT scan showing liver cirrhosis, portal hypertension OP report pg.1 [ x ] Findings of liber cirrhosis, diagnosed with portal hypertension PN 08/18 pg.1 Present Risk Factors Results and Location in Medical Record [ x ] Cirrhosis H and P pg.3 [ x ] Obese Consult pg.1 [ x ] Anemia due to blood loss Consult pg.3 [ x ] HTN H and P pg.1 [ x ] 54 years old H and P pg.1 [ x ] DM H and P pg.1 Present Treatments Results and Location in Medical Record [ x ] GI Consult Dr. Dooley 08/16 [ x ] H/ H monitoring Laboratory [ x ] IV Fluids DEC 04 [ x ] Esophageal bonding OP report pg.1 [ x ] EGD OP report pg.1 [ x ] PRBC Blood bank [ x ] Propranolol 20mg Oral DEC 04 CDS/Bid Analyst Signature: Alan Louise Phone #: [phone] Date 08/22/2020 MTDD
== END 2020-08-20 18:03 | disposition home or self-care (01) | DRG 441 ==
LOC: ERS 20:23 → IMCU/EMU 22:36
PROVIDERS: ADMIT Internal Medicine; ATTEND Internal Medicine
PROC: 30233N1 Transfusion of Nonautologous Red Blood Cells into Peripheral Vein, Percutaneous Approach (ICD-10-PCS; 2020-08-16)
PROC: 06L38CZ Occlusion of Esophageal Vein with Extraluminal Device, Via Natural or Artificial Opening Endoscopic (ICD-10-PCS; principal; 2020-08-18)
PROC: 06L28CZ Occlusion of Gastric Vein with Extraluminal Device, Via Natural or Artificial Opening Endoscopic (ICD-10-PCS; 2020-08-18)
DX: K76.6 Portal hypertension (principal); I85.11 Secondary esophageal varices with bleeding; D61.818 Other pancytopenia; D62 Acute posthemorrhagic anemia; K74.60 Unspecified cirrhosis of liver; K31.89 Other diseases of stomach and duodenum; E03.9 Hypothyroidism, unspecified; Z20.828 Contact with and (suspected) exposure to other viral communicable diseases; D69.59 Other secondary thrombocytopenia; E87.6 Hypokalemia; I86.4 Gastric varices; K20.90 Esophagitis, unspecified without bleeding; E66.9 Obesity, unspecified; D73.1 Hypersplenism; D73.5 Infarction of spleen; Z68.34 Body mass index [BMI] 34.0-34.9, adult; Z88.2 Allergy status to sulfonamides; Z79.890 Hormone replacement therapy; Z79.899 Other long term (current) drug therapy; Z79.4 Long term (current) use of insulin
CPT/HCPCS: 36415; 36416; 36430; 36556; 71045; 71260; 74177; 80048; 80053; 80074; 80076; 82728; 83540; 83550; 83735; 85025; 85610; 85730; 86850; 86900; 86901; 87635; 96365; 96366; 96374; 96375; 99292; C9113; J0696; J1100; J2354; J2405; J2550; J2704; J3480; J3490; J7050; P9016; Q9967; U0003